=== PATIENT | female | born 1985 | race Caucasian/White ===

== ENCOUNTER 2017-01-15 15:50 | Emergency (ER) | payer BC ==
[2017-01-15] MEDS ORDERED: NORMAL SALINE 1000 ML 1,000 ML IV PRN (16:28)
--- NOTE | 2017-01-15 16:30 | ER Document Report ---
ED Medical Screen (RME) - General Chief Complaint: Dizziness Stated Complaint: DIZZINESS Time Seen by Provider: 01/15/17 16:28 Notes: Patient presents with diarrhea dizziness and left-sided abdominal pain. She also had an episode of syncope at home. She states she is currently 14 weeks . No new vaginal discharge or bleeding. She states she did have a normal ultrasound with this 4 weeks ago. She denies any vomiting. TRAVEL OUTSIDE OF THE [place] IN LAST 30 DAYS: No - Related Data Allergies/Adverse Reactions: No Known Allergies Allergy (Verified 01/15/17 16:28) Past Medical History - Social History Chew tobacco use (# tins/day): No Frequency of alcohol use: None Drug Abuse: None Renal/ Medical History: Denies: Hx Ovarian Cysts GI Medical History: Denies: Hx Crohn's Disease, Hx Diverticulitis, Hx Gastritis , Hx Irritable Bowel, Hx Ulcerative Colitis Surgical Hx: Negative - Immunizations Hx Diphtheria, Pertussis, Tetanus Vaccination: Yes Physical Exam - Vital signs Vitals: Temp Pulse Resp BP Pulse Ox 98.7 F 112 H 16 121/77 100 01/15/17 16:27 01/15/17 16:27 01/15/17 16:27 01/15/17 16:27 01/15/17 16:27 Course - Vital Signs Vital signs: Temp Pulse Resp BP Pulse Ox 98.7 F 112 H 16 121/77 100 01/15/17 16:27 01/15/17 16:27 01/15/17 16:27 01/15/17 16:27 01/15/17 16:27
[2017-01-15 17:27] LABS: APPEARANCE,URINE SLIGHTLY-CLOUDY; BILIRUBIN,URINE NEGATIVE (NEGATIVE); GLUCOSE, URINE NEGATIVE (NEGATIVE); KETONES,URINE 20 mg/dL (NEGATIVE); LEUKOCYTE ESTERASE,URINE NEGATIVE (NEGATIVE); NITRITE,URINE NEGATIVE (NEGATIVE); PROTEIN,URINE NEGATIVE (NEGATIVE); UROBILINOGEN,URINE NEGATIVE mg/dL (<2.0)
[2017-01-15 18:24] LABS: ABSOLUTE LYMPHOCYTES (AUTO) 1.5 10^3/uL (0.5-4.7); ABSOLUTE MONOCYTES (AUTO) 0.4 10^3/uL (0.1-1.4); ABSOLUTE NEUT (AUTO) 4.7 10^3/uL (1.7-8.2); BASOPHILS % (AUTO) 0.2 % (0-2); EOSINOPHILS % (AUTO) 0.3 % (0-6); HEMATOCRIT 37.4 % (36.0-47.0); HEMOGLOBIN 12.7 g/dL (12.0-15.5); HGB HCT DIFFERENCE 0.7; LYMPHOCYTES % (AUTO) 22.4 % (13-45); MEAN CORPUSCULAR HEMOGLOBIN 29.8 pg (27.0-33.4); MEAN CORPUSCULAR VOLUME 88 fl (80-97); MONOCYTES % (AUTO) 6.7 % (3-13); RED BLOOD COUNT 4.27 10^6/uL (3.72-5.28); RED CELL DISTRIBUTION WIDTH 13.8 % (11.5-14.0); SEGMENTED NEUTROPHILS % (AUTO) 70.4 % (42-78); WHITE BLOOD COUNT 6.7 10^3/uL (4.0-10.5)
[2017-01-15 18:40] LABS: ALANINE AMINOTRANSFERASE 27 U/L (9-52); ALBUMIN 4.1 g/dL (3.5-5.0); ALKALINE PHOSPHATASE 65 U/L (38-126); ANION GAP 11 (5-19); ASPARTATE AMINO TRANSFERASE 21 U/L (14-36); BILIRUBIN,DIRECT 0.4 mg/dL (0.0-0.4); BILIRUBIN,TOTAL 0.5 mg/dL (0.2-1.3); BLOOD UREA NITROGEN 8 mg/dL (7-20); CALCIUM 9.5 mg/dL (8.4-10.2); CARBON DIOXIDE 23 mmol/L (22-30); CHLORIDE 104 mmol/L (98-107); GLUCOSE 80 mg/dL (75-110); LIPASE 116.2 U/L (23-300); POTASSIUM 4.2 mmol/L (3.6-5.0); SODIUM 137.9 mmol/L (137-145); TOTAL PROTEIN 7.1 g/dL (6.3-8.2)
--- NOTE | 2017-01-15 21:35 | RADIOLOGY REPORT (SQ) ---
EXAM DESCRIPTION: U/S OB 14+ TRNABD 1GES W/O DOP COMPLETED DATE/TIME: 01/15/2017 9:09 pm REASON FOR STUDY: pain COMPARISON: None. TECHNIQUE: Limited transvaginal and transabdominal grayscale ultrasound for evaluation of specific r equested obstetrical parameters. LIMITATIONS: None. FINDINGS: Live intrauterine with ultrasound composite gestational age of 15 weeks 0 days, GAVINO 07/09/2017. CERVICAL LENGTH: 5 cm Closed. DAVID: Normal FHR: 157 beats per minute. PRESENTATION: Breech OTHER: No other significant findings. IMPRESSION: LIMITED OBSTETRICAL ULTRASOUND WITH MEASURED PARAMETERS DELINEATED ABOVE. Trimester of : Second trimester - 13 weeks 1 day to 27 weeks 6 days. TECHNICAL DOCUMENTATION: JOB ID: [id number] [employer]- All Rights Reserved
--- NOTE | 2017-01-15 21:46 | EKG REPORT ---
SEVERITY:- NORMAL ECG - SINUS RHYTHM NONSPECIFIC ST-T CHANGES : Confirmed by: Donna Tobias 15-Jan-2017 21:46:14
[2017-01-15] MEDS ORDERED: METRONIDAZOLE 500 MG TABLET PO ONE (22:30)
[2017-01-15] MEDS ORDERED: PROCHLORPERAZINE MALEATE 10 MG TABLET PO ONE (22:30)
--- NOTE | 2017-01-15 22:36 | ER Document Report ---
ED General - General Chief Complaint: Dizziness Stated Complaint: DIZZINESS Time Seen by Provider: 01/15/17 16:28 Mode of Arrival: Ambulatory Information source: Patient TRAVEL OUTSIDE OF THE [place] IN LAST 30 DAYS: No - HPI Patient complains to provider of: Abdominal cramping, syncopal episode Onset: Just prior to arrival Onset/Duration: Sudden Quality of pain: Achy, Cramping Severity: Mild Pain Level: 2 Associated symptoms: Diarrhea Exacerbated by: Denies Relieved by: Denies Similar symptoms previously: Yes Recently seen / treated by doctor: Yes Notes: Patient is a 31-year-old female who is currently 14 weeks , presenting to the emergency room complaining of diffuse abdominal cramping with diarrhea which is at time mucousy, this been going on for the past 2 days, today she had a syncopal episode while she was sitting at the table, becoming lightheaded having some neck stiffness at the time and passed out for a few seconds, she denies any chest pain or shortness of breath, no headaches, no nausea or vomiting, no fever chills, no dysuria or hematuria, she does report having some syncopal episodes during her first but not since, also reports a history of colitis with similar abdominal complaints in the past - Related Data Allergies/Adverse Reactions: No Known Allergies Allergy (Verified 01/15/17 16:28) Past Medical History - General Information source: Patient - Social History Smoking Status: Never Smoker Chew tobacco use (# tins/day): No Frequency of alcohol use: None Drug Abuse: None Family History: Reviewed & Not Pertinent Renal/ Medical History: Denies: Hx Ovarian Cysts GI Medical History: Denies: Hx Crohn's Disease, Hx Diverticulitis, Hx Gastritis , Hx Irritable Bowel, Hx Ulcerative Colitis Surgical Hx: Negative - Immunizations Hx Diphtheria, Pertussis, Tetanus Vaccination: Yes Review of Systems - Review of Systems Constitutional: No symptoms reported EENT: No symptoms reported Cardiovascular: See HPI Respiratory: No symptoms reported Gastrointestinal: See HPI Genitourinary: No symptoms reported Female Genitourinary: No symptoms reported Musculoskeletal: No symptoms reported Skin: No symptoms reported Hematologic/Lymphatic: No symptoms reported Neurological/Psychological: No symptoms reported -: Yes All other systems reviewed and negative Physical Exam - Vital signs Vitals: Temp Pulse Resp BP Pulse Ox 98.7 F 112 H 16 121/77 100 01/15/17 16:27 01/15/17 16:27 01/15/17 16:27 01/15/17 16:27 01/15/17 16:27 Interpretation: Normal - General General appearance: Appears well, Alert - HEENT Head: Normocephalic, Atraumatic Eyes: Normal Pupils: PERRL - Respiratory Respiratory status: No respiratory distress Chest status: Nontender Breath sounds: Normal Chest palpation: Normal - Cardiovascular Rhythm: Regular Heart sounds: Normal auscultation Murmur: No - Abdominal Inspection: Normal Distension: No distension Bowel sounds: Normal Tenderness: Tender - Mild diffuse tenderness Organomegaly: No organomegaly - Back Back: Normal, Nontender - Extremities General upper extremity: Normal inspection, Nontender, Normal color, Normal ROM , Normal temperature General lower extremity: Normal inspection, Nontender, Normal color, Normal ROM , Normal temperature, Normal weight bearing. No: Ghazal's sign - Neurological Neuro grossly intact: Yes Cognition: Normal Orientation: AAOx4 [place] Coma Scale Eye Opening: Spontaneous [place] Coma Scale Verbal: Oriented [place] Coma Scale Motor: Obeys Commands [place] Coma Scale Total: 15 Speech: Normal Motor strength normal: LUE, RUE, LLE, RLE Sensory: Normal - Psychological Associated symptoms: Normal affect, Normal mood - Skin Skin Temperature: Warm Skin Moisture: Dry Skin Color: Normal Course - Re-evaluation Re-evalutation: 01/15/17 22:33 Patient has a history of colitis causing her to be hospitalized atleast 2 times in the past with similar symptoms that she is experiencing today, she is currently a proximally 14 weeks with normal workup and evaluation in the emergency room, she will be started on Flagyl and provided with a prescription for antinausea medication to help with symptom relief as well, advised to follow-up with her [facility] C[facility]TER or return if symptoms worsen, patient acknowledges understanding and agreement with this plan, labs and imaging were discussed with her and spouse at bedside - Vital Signs Vital signs: Temp Pulse Resp BP Pulse Ox 98.7 F 112 H 16 121/77 100 01/15/17 16:27 01/15/17 16:27 01/15/17 16:27 01/15/17 16:27 01/15/17 16:27 - Laboratory Result Diagrams: 01/15/17 17:29 01/15/17 17:29 Laboratory results interpreted by me: 01/15/17 17:02 Urine Ketones 20 H Urine Blood SMALL H - EKG Interpretation by Me EKG shows normal: Sinus rhythm Rate: Normal Rhythm: NSR Discharge - Discharge Clinical Impression: Abdominal pain Qualifiers: Abdominal location: generalized Qualified Code(s): R10.84 - Generalized abdominal pain Qualifiers: Weeks of gestation: 15 weeks Qualified Code(s): Z3A.15 - 15 weeks gestation of Condition: Stable Disposition: HOME, SELF-CARE Instructions: Abdominal Pain ([facility]), Antinausea Medication ([facility]), Colitis, Nonspecific ([facility]) Additional Instructions: Follow up with your primary care provider in one to 2 days. Return to the emergency room immediately if symptoms worsen or any additional concerns. Prescriptions: Metronidazole [Flagyl 500 mg Tablet] 500 mg PO TID #30 tablet Prochlorperazine Maleate [Compazine 10 mg Tablet] 10 mg PO ASDIR PRN #10 tablet PRN Reason:
[2017-01-15 22:59] VITALS: BP 129/78
== END 2017-01-15 22:56 | disposition home or self-care (01) ==
LOC: ER 15:50
DX: O26.892 Other specified pregnancy related conditions, second trimester (principal); R10.84 Generalized abdominal pain; R19.7 Diarrhea, unspecified; R55 Syncope and collapse; Z3A.15 15 weeks gestation of pregnancy; Z87.19 Personal history of other diseases of the digestive system
CPT/HCPCS: 93005; 99284; 96360; 36415; 83690; 85025; 80053; 81001; 76805; 93010; S0183; J7030

== ENCOUNTER 2017-06-04 18:54 | Outpatient (CLI) | payer BC ==
[2017-06-04 19:48] LABS: APPEARANCE,URINE SLIGHTLY-CLOUDY; BILIRUBIN,URINE NEGATIVE (NEGATIVE); COLOR,URINE YELLOW; GLUCOSE, URINE NEGATIVE (NEGATIVE); KETONES,URINE 80 mg/dL (NEGATIVE); LEUKOCYTE ESTERASE,URINE MODERATE (NEGATIVE); NITRITE,URINE NEGATIVE (NEGATIVE); PROTEIN,URINE NEGATIVE (NEGATIVE); URINE SPECIFIC GRAVITY 1.013; UROBILINOGEN,URINE NEGATIVE mg/dL (<2.0)
[2017-06-04 20:00] LABS: URINE AMPHETAMINES SCREEN NEGATIVE; URINE BARBITURATES SCREEN NEGATIVE; URINE BENZODIAZEPINES SCREEN NEGATIVE; URINE COCAINE SCREEN NEGATIVE; URINE MARIJUANA (THC) SCREEN NEGATIVE; URINE METHADONE SCREEN NEGATIVE; URINE PHENCYCLIDINE SCREEN NEGATIVE
--- NOTE | 2017-06-04 20:25 | Non Stress Test Report ---
Non Stress Test Datetime Report Generated by CPN: 06/04/2017 20:24 DEMOGRAPHIC Test Number: 1 EGA NST: 34.3 INDICATION Indication for Study: Ordered by Provider MONITORING Monitor Explained: Monitor Explained; Test Explained; Patient Verbalized Understanding Time on Monitor: 06/04/2017 19:40 Time off Monitor: 06/04/2017 20:06 NST Duration: 26 NST INTERVENTIONS NST Interventions: PO Hydration; Reposition Patient Physician Notified NST: DrNaomi eHlen BABY A: [id number] BABY A Movement : Present Contraction Frequency : irritability FHR Baseline : 145 Accelerations : 15X15 Decelerations : None Variability : Moderate 6-25bpm NST Review: Meets Criteria for Reactive NST NST Review and Verified By : MATT Stanley Results: Reactive NST REPORT Report Trigger: Send Report
== END 2017-06-04 20:21 | disposition home or self-care (01) ==
LOC: LC 18:54
PROVIDERS: ATTEND Student in an Organized Health Care Education/Training Program
PROC: 4A1HXCZ Monitoring of Products of Conception, Cardiac Rate, External Approach (ICD-10-PCS; principal; 2017-06-04)
DX: Z34.83 Encounter for supervision of other normal pregnancy, third trimester (principal); Z36.89 Encounter for other specified antenatal screening; Z3A.34 34 weeks gestation of pregnancy
CPT/HCPCS: 80307; 81001; 94760

== ENCOUNTER 2017-06-04 20:31 | Emergency (ER) | payer BC ==
[2017-06-04] MEDS ORDERED: NORMAL SALINE 1000 ML 1,000 ML IV ONE (21:09)
[2017-06-04 21:41] LABS: ABSOLUTE LYMPHOCYTES (AUTO) 0.9 10^3/uL (0.5-4.7); ABSOLUTE MONOCYTES (AUTO) 0.7 10^3/uL (0.1-1.4); ABSOLUTE NEUT (AUTO) 9.1 10^3/uL (1.7-8.2); BASOPHILS % (AUTO) 0.2 % (0-2); EOSINOPHILS % (AUTO) 0.1 % (0-6); HEMATOCRIT 39.3 % (36.0-47.0); HEMOGLOBIN 13.6 g/dL (12.0-15.5); LYMPHOCYTES % (AUTO) 8.3 % (13-45); MEAN CORPUSCULAR HEMOGLOBIN 30.9 pg (27.0-33.4); MEAN CORPUSCULAR HGB CONC 34.6 g/dL (32.0-36.0); MEAN CORPUSCULAR VOLUME 89 fl (80-97); MONOCYTES % (AUTO) 6.6 % (3-13); PLATELET COUNT 199 10^3/uL (150-450); RED CELL DISTRIBUTION WIDTH 13.8 % (11.5-14.0); SEGMENTED NEUTROPHILS % (AUTO) 84.8 % (42-78); TOTAL CELLS COUNTED % (AUTO) 100 %; WHITE BLOOD COUNT 10.7 10^3/uL (4.0-10.5)
[2017-06-04 22:05] LABS: ALANINE AMINOTRANSFERASE 23 U/L (9-52); ALBUMIN 3.8 g/dL (3.5-5.0); ALKALINE PHOSPHATASE 145 U/L (38-126); ANION GAP 12 (5-19); ASPARTATE AMINO TRANSFERASE 20 U/L (14-36); BILIRUBIN,DIRECT 0.2 mg/dL (0.0-0.4); BILIRUBIN,TOTAL 0.7 mg/dL (0.2-1.3); BLOOD UREA NITROGEN 7 mg/dL (7-20); CALCIUM 9.6 mg/dL (8.4-10.2); CARBON DIOXIDE 22 mmol/L (22-30); CHLORIDE 105 mmol/L (98-107); GLUCOSE 76 mg/dL (75-110); SODIUM 138.8 mmol/L (137-145); TOTAL PROTEIN 6.5 g/dL (6.3-8.2)
--- NOTE | 2017-06-04 23:00 | ER Document Report ---
ED Cardiac - General TRAVEL OUTSIDE OF THE [place] IN LAST 30 DAYS: No - HPI Patient complains to provider of: Chest pain, Shortness of breath Associated symptoms: Other - see notes above <TEVIN KIRBY - Last Filed: 06/05/17 03:15> <THONG MCCARTNEY - Last Filed: 06/05/17 04:23> - General Chief Complaint: Chest Pain Stated Complaint: CEHST PAIN,SHORTNESS OF BREATH Time Seen by Provider: 06/04/17 21:10 Notes: 31 year old female (34 weeks) presents to the ED complaining of intermittent chest pain and shortness of breath that started today. Patient reports that she had 1 episode of vomiting while waiting in the ED and has had nausea all day. Patient denies any leg pain or swelling. (TEVIN KIRBY) - Related Data Allergies/Adverse Reactions: No Known Allergies Allergy (Verified 06/04/17 19:08) Past Medical History - General Information source: Patient - Social History Smoking Status: Never Smoker Chew tobacco use (# tins/day): No Frequency of alcohol use: None Drug Abuse: None Family History: Reviewed & Not Pertinent Patient has suicidal ideation: No Patient has homicidal ideation: No Renal/ Medical History: Denies: Hx Ovarian Cysts, Hx Peritoneal Dialysis GI Medical History: Denies: Hx Crohn's Disease, Hx Diverticulitis, Hx Gastritis , Hx Irritable Bowel, Hx Ulcerative Colitis - Immunizations Hx Diphtheria, Pertussis, Tetanus Vaccination: Yes <TEVIN KIRBY - Last Filed: 06/05/17 03:15> Review of Systems - Review of Systems Constitutional: No symptoms reported EENT: No symptoms reported Cardiovascular: See HPI, Chest pain Respiratory: See HPI, Short of breath Gastrointestinal: See HPI, Nausea, Vomiting Genitourinary: No symptoms reported Female Genitourinary: No symptoms reported Musculoskeletal: See HPI, Other - no leg pain. denies: Leg swelling Skin: No symptoms reported Hematologic/Lymphatic: No symptoms reported Neurological/Psychological: No symptoms reported -: Yes All other systems reviewed and negative <TEVIN KIRBY - Last Filed: 06/05/17 03:15> Physical Exam - Vital signs Interpretation: Hypotensive, Tachycardic - General General appearance: Alert In distress: None - HEENT Head: Normocephalic, Atraumatic Eyes: Normal Extraocular movements intact: Yes Pupils: PERRL Mucous membranes: Dry - Respiratory Respiratory status: No respiratory distress Breath sounds: Normal - Cardiovascular Rhythm: Regular, Tachycardia Heart sounds: Normal auscultation - Abdominal Inspection: Normal, Gravid female - Back Back: Normal - Extremities General upper extremity: Normal inspection, Normal ROM General lower extremity: Normal inspection, Normal ROM - Neurological Neuro grossly intact: Yes Cognition: Normal Orientation: AAOx4 [place] Coma Scale Eye Opening: Spontaneous [place] Coma Scale Verbal: Oriented [place] Coma Scale Motor: Obeys Commands [place] Coma Scale Total: 15 Speech: Normal - Psychological Associated symptoms: Normal affect, Normal mood - Skin Skin Temperature: Warm Skin Moisture: Dry Skin Color: Normal <TEVIN KIRBY - Last Filed: 06/05/17 03:15> - Vital signs Vitals: Temp Pulse Resp BP Pulse Ox 98.8 F 100 20 116/64 98 06/04/17 20:50 06/04/17 20:50 06/04/17 20:50 06/04/17 20:50 06/04/17 20:50 Course - Laboratory Result Diagrams: 06/04/17 21:32 06/04/17 21:32 - Consults Dr. Cervantes Time consulted: 03:14 <TEVIN KIRBY - Last Filed: 06/05/17 03:15> - Laboratory Result Diagrams: 06/04/17 21:32 06/04/17 21:32 - Diagnostic Test Radiology reviewed: Reports reviewed <THONG MCCARTNEY - Last Filed: 06/05/17 04:23> - Re-evaluation Re-evalutation: 06/05/17 01:30 Patient rechecked and updated with CT findings of a negative PE. Patient is experiencing the same pain and nausea as earlier and agrees to take some medicine at this time. (TEVIN KIRBY) 06/05/17 03:20 Patient is a 31-year-old female who was sent to the emergency department from labor and delivery for evaluation of chest pain. Patient states that she has had nausea, chest discomfort and dyspnea on and off. Patient had urine done in labor and delivery. Patient states that it hurts when she is breathing. Discussed doing CTA and patient was agreeable to this. No acute findings for PE , pneumothorax, or pneumonia. Patient has been given fluids. Initially she did not want anything for nausea or discomfort. Patient was then agreeable to taking medications as she was still nauseated. Given Reglan and Protonix here for suspected severe reflux. Patient had 80+ ketones on her urine. Patient does have bacteria but also squamous cells. Urine culture has been sent. Patient is still nauseated and not feeling well. She is persistently tachycardic with minimal movement and has been hypotensive here. Patient was discussed with the TERAD[facility] DEVELOPER, Dr. Cervantes who will observe the patient in labor and delivery. Patient is agreeable to this plan. 06/05/17 04:22 Patient was being sent up to labor and delivery. Patient is not going to be kept for observation but she is going upstairs for a second labor check. Dr. Cervantes will determine upstairs with the patient needs to be kept for observation. (THONG MCCARTNEY) - Vital Signs Vital signs: Temp Pulse Resp BP Pulse Ox 98.8 F 100 18 98/62 L 97 06/04/17 20:50 06/04/17 20:50 06/05/17 02:01 06/05/17 02:00 06/05/17 02:01 - Laboratory Laboratory results interpreted by me: 06/04/17 06/04/17 06/04/17 21:32 21:32 21:32 WBC 10.7 H Seg Neutrophils % 84.8 H Lymphocytes % 8.3 L Absolute Neutrophils 9.1 H D-Dimer 1.21 H Alkaline Phosphatase 145 H - Consults Dr. Cervantes Reason for consultation: 06/05/17 03:[address] Cervantes who agrees to admit the patient under her care. (TEVIN KIRBY) Discharge <TEVIN KIRBY - Last Filed: 06/05/17 03:15> <THONG MCCARTNEY - Last Filed: 06/05/17 04:23> - Discharge Clinical Impression: Dehydration, Nausea, Persistent tachycardia Condition: Stable Disposition: LABOR CHECK Scribe Attestation: 06/05/17 04:23 I personally performed the services described in the documentation, reviewed and edited the documentation which was dictated to the scribe in my presence, and it accurately records my words and actions. (THONG MCCARTNEY) Scribe Documentation - Scribe Written by Scribe:: Breana Wallace, 06/04/2017 [id number] acting as scribe for :: Palmer <TEVIN KIRBY - Last Filed: 06/05/17 03:15>
--- NOTE | 2017-06-05 00:53 | RADIOLOGY REPORT (SQ) ---
EXAM DESCRIPTION: CTA CHEST COMPLETED DATE/TIME: 06/04/2017 11:44 pm REASON FOR STUDY: Chest pain. The patient is 34 weeks . COMPARISON: None. TECHNIQUE: CT scan of the chest performed using helical scanning technique with dynamic intravenous contrast injection. Images reviewed with lung, soft tissue and bone windows. Reconstructed coronal and sagittal MPR images reviewed. Additional 3 dimensional post-processing performed to develop Maximal Intensity Projection images ([place] P). All images stored on PACS. All CT scanners at this facility use dose modulation, iterative reconstruction, and/or weight based d osing when appropriate to reduce radiation dose to as low as reasonably achievable (ALARA). [facility]: Dose Right [facility]: CareDose [facility]: Dose Right [facility]: Teradose 4D [facility]: [employer] CONTRAST TYPE AND DOSE: contrast/concentration: Isovue 370.00 mg/ml; Total Contrast Delivered: 100.0 ml; Total Saline Delivered: 40.0 ml Contrast bolus optimized for the pulmonary arteries. Not diagnostic for the aorta. RENAL FUNCTION: Creatinine 0.60 RADIATION DOSE: CT Rad equipment meets quality standard of care and radiation dose reduction techniq ues were employed. CTDIvol: 14.4 mGy. DLP: 366 mGy-cm. . LIMITATIONS: There is motion artifact. FINDINGS: LUNGS AND PLEURA: No consolidation, pleural effusion or pneumothorax. AORTA AND GREAT VESSELS: No thoracic aortic aneurysm. Contrast bolus not optimized for the aorta. HEART: No pericardial effusion. No significant coronary artery calcifications. PULMONARY ARTERIES: No emboli visualized in the main pulmonary arteries or the segmental branches. HILAR AND MEDIASTINAL STRUCTURES: No identified masses or abnormal nodes. HARDWARE: None in the chest. UPPER ABDOMEN: No significant findings. Limited exam. BONES: No acute findings. 3D MIPS: Confirm above findings. IMPRESSION: No pulmonary emboli. COMMENT: Quality ID # [id number]: Final reports with documentation of one or more dose reduction techniques (e.g., Automated exposure control, adjustment of the mA and/or kV according to patient size, use of iterative reconstruction technique) TECHNICAL DOCUMENTATION: JOB ID: [id number] [email or web address]- All Rights Reserved
[2017-06-05] MEDS ORDERED: NORMAL SALINE 1000 ML 1,000 ML IV ONE (01:13)
[2017-06-05] MEDS ORDERED: PANTOPRAZOLE SODIUM 40 MG VIAL IV ONE (01:23)
[2017-06-05] MEDS ORDERED: METOCLOPRAMIDE HCL INJ/PF 10 MG/2 ML SDV IV ONE (01:23)
[2017-06-05] MEDS ORDERED: CEFTRIAXONE 1 GM/D5W RTU 1 GM/50 ML RTUPB IV ONE (03:06)
[2017-06-05 04:33] VITALS: BP 118/73
--- NOTE | 2017-06-05 07:58 | EKG REPORT ---
SEVERITY:- BORDERLINE ECG - SINUS TACHYCARDIA PROBABLE LEFT ATRIAL ABNORMALITY BORDERLINE T ABNORMALITIES, ANT-LAT LEADS : Confirmed by: Benji Gurrola MD 05-Jun-2017 07:56:59
== END 2017-06-05 05:44 | disposition home or self-care (01) ==
LOC: ER 20:31 → EH 06-05 03:43 → UNDOADMOB 06-05 03:43 → ER 06-05 05:44 → UNDODISOB 06-05 05:44
DX: O99.283 Endocrine, nutritional and metabolic diseases complicating pregnancy, third trimester (principal); E86.0 Dehydration; O21.2 Late vomiting of pregnancy; O26.893 Other specified pregnancy related conditions, third trimester; R00.0 Tachycardia, unspecified; R06.02 Shortness of breath; R07.1 Chest pain on breathing; Z3A.34 34 weeks gestation of pregnancy
CPT/HCPCS: 93005; 99285; 96361; 96374; 96375; 36415; 87040; 85025; 80053; 84484; 85379; 71275; 93010; J2765; S0164; J7030 ×2

== ENCOUNTER 2017-06-05 04:29 | Outpatient (CLI) | payer BC ==
[2017-06-05] MEDS ORDERED: ONDANSETRON HCL INJ/PF 4 MG/2 ML SDV ONE (05:30)
[2017-06-05] MEDS ORDERED: METOCLOPRAMIDE HCL ORAL SOLN 10 MG/10 ML UDCUP PO ONE (05:53)
[2017-06-05] MEDS ORDERED: MAG HYDROX/AL HYDROX/SIMETH SUSP 30 ML UDCUP PO ONE (05:53)
[2017-06-05] MEDS ORDERED: LIDOCAINE 2% VISCOUS SOLN 20 ML UDCUP PO ONE (05:53)
[2017-06-05] MEDS ORDERED: METOCLOPRAMIDE HCL ORAL SOLN 10 MG/10 ML UDCUP ONE (06:09)
[2017-06-05] MEDS ORDERED: LIDOCAINE 2% VISCOUS SOLN 20 ML UDCUP ONE (06:09)
[2017-06-05] MEDS ORDERED: MAG HYDROX/AL HYDROX/SIMETH SUSP 30 ML UDCUP ONE (06:16)
[2017-06-05 06:22] LABS: APPEARANCE,URINE CLEAR; BILIRUBIN,URINE NEGATIVE (NEGATIVE); COLOR,URINE YELLOW; GLUCOSE, URINE NEGATIVE (NEGATIVE); KETONES,URINE 80 mg/dL (NEGATIVE); LEUKOCYTE ESTERASE,URINE LARGE (NEGATIVE); NITRITE,URINE NEGATIVE (NEGATIVE); PROTEIN,URINE NEGATIVE (NEGATIVE); URINE SPECIFIC GRAVITY 1.016; UROBILINOGEN,URINE NEGATIVE mg/dL (<2.0)
== END 2017-06-05 11:00 | disposition home or self-care (01) ==
LOC: LC 04:29
PROVIDERS: ATTEND Student in an Organized Health Care Education/Training Program
PROC: 4A1HXCZ Monitoring of Products of Conception, Cardiac Rate, External Approach (ICD-10-PCS; principal; 2017-06-05)
DX: O21.0 Mild hyperemesis gravidarum (principal); Z3A.34 34 weeks gestation of pregnancy
CPT/HCPCS: 59025; 87086; 81001; J3490; J2405

== ENCOUNTER 2017-07-01 20:44 | Outpatient (CLI) | payer BC ==
[2017-07-01 21:13] LABS: APPEARANCE,URINE CLEAR; BILIRUBIN,URINE NEGATIVE (NEGATIVE); COLOR,URINE STRAW; GLUCOSE, URINE NEGATIVE (NEGATIVE); KETONES,URINE NEGATIVE (NEGATIVE); LEUKOCYTE ESTERASE,URINE NEGATIVE (NEGATIVE); NITRITE,URINE NEGATIVE (NEGATIVE); PROTEIN,URINE NEGATIVE (NEGATIVE); URINE SPECIFIC GRAVITY 1.004; UROBILINOGEN,URINE NEGATIVE mg/dL (<2.0)
[2017-07-01 21:28] LABS: URINE AMPHETAMINES SCREEN NEGATIVE; URINE BARBITURATES SCREEN NEGATIVE; URINE BENZODIAZEPINES SCREEN NEGATIVE; URINE COCAINE SCREEN NEGATIVE; URINE MARIJUANA (THC) SCREEN NEGATIVE; URINE METHADONE SCREEN NEGATIVE; URINE PHENCYCLIDINE SCREEN NEGATIVE
--- NOTE | 2017-07-01 21:51 | Non Stress Test Report ---
Non Stress Test Datetime Report Generated by CPN: 07/01/2017 21:50 DEMOGRAPHIC Test Number: 3 EGA NST: 38.2 EGA NST: 34.4 INDICATION Indication for Study: Other Indication for Study: Ordered by Provider Indication for Study (NST) Other: LC URINE RESULTS Urine Protein, NST: Negative Urine Ketones - NST: Negative Urine Glucose - NST: Negative Urine Blood - NST: Negative MONITORING Monitor Explained: Monitor Explained; Test Explained; Patient Verbalized Understanding Monitor Explained: Monitor Explained; Test Explained; Patient Verbalized Understanding Time on Monitor: 07/01/2017 21:02 Time on Monitor: 06/05/2017 05:07 Time off Monitor: 07/01/2017 21:50 NST Duration: 48 NST INTERVENTIONS NST Interventions: None NST Interventions: PO Hydration; IV Fluids Physician Notified NST: Dr. Potter Physician Notified NST: Dr. Cervantes BABY A: [id number] BABY A Movement : Present Movement : Present Contraction Frequency : 6-11 Contraction Frequency : 3-9 FHR Baseline : 140 FHR Baseline : 130 Accelerations : 15X15 Accelerations : 15X15 Decelerations : None Decelerations : None Variability : Moderate 6-25bpm Variability : Moderate 6-25bpm NST Review: Meets Criteria for Reactive NST NST Review and Verified By : Salma Calles RN NST Results: Reactive NST REPORT Report Trigger: Send Report
--- NOTE | 2017-07-08 12:36 | Admission Physical ---
Datetime Report Generated by CPN: 07/08/2017 12:35 CURRENT ADMISSION Chief Complaint: Uterine Contractions; Other Chief Complaint Other: sent from ER for Tachycardia, Dehydration, and concern for pyelo Indication for Induction: Not Applicable Indication for Induction: , Intrauterine ; No Active Labor; Intact Membranes Admit Plan- Other: Pt brought to L_D for evaluation and labor check. ALLERGIES Medication Allergies: No Medication Allergies: No Known Allergies (07/01/2017) Medication Allergies: No Known Allergies (06/05/2017) Medication Allergies: No Known Allergies (06/04/2017) Medication Allergies: No Known Allergies (01/15/2017) Latex: Latex Allergies Food Allergies: None Environmental Allergies: None OBSTETRICAL HISTORY EDC: 07/13/2017 00:00 : 4 Para: 3 Term: 3 : 0 SAB: 0 IAB: 0 Ectopic: 0 Livin Cesareans: 0 VBACs: 0 Multiple Births: 0 Gestational Diabetes: No Rh Sensitization: No Incompetent Cervix: No HELENA: No Infertility: No ART Treatment: No Uterine Anomaly: No IUGR: No Hx Previous C/S: No Macrosomia: No Hx Loss/Stillborn: No PIH: No Hx : No Placenta Previa/Abruption: No Depression/PP Depression: No PTL/PROM: No Post Hemorrhage: No Current Procedures: Ultrasound Obstetrical History Comments: G1-39 weeks-7lbs [id number] G2-39 weeks-6lbs 1vl-[id number]-HPW-nuchal cord X2 tight- apgars 3-5-7 G3-39 weeks-6lbs [id number] G4-current, breech, plan is for primary c/s SEE RECORDS Alcohol: No Marijuana : No Cocaine: No Other Illicit Drugs: No Cigarettes: Never Smoker. 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 Heart Disease: No Hosp/Surgery: Yes Autoimmune Disorder: No Anesthetic Complications: No Kidney Disease: Yes Abnormal Pap Smear: Yes Neuro/Epilepsy: No Psychiatric Disorders: No Other Medical Diseases: No Hepatitis/Liver Disease: No Significant Family History: No Varicosities/Phlebitis: No Trauma/Violence : No Thyroid Dysfunction: No Medical History Comments: colitis 2012, hematuria 2013-referral to urology, fibrocystic mass right breast-2013 INFECTIOUS HISTORY Gonorrhea: No Genital Herpes: No Chlamydia: Yes Tuberculosis: No Syphilis: No Hepatitis: No HIV/AIDS Exposure: No Rash or Viral Illness: No HPV: No Infectious History Comments: chlamydia 2013 PHYSICAL EXAM General: Normal HEENT: Normal Neurologic: Normal Thyroid: Deferred Heart: Normal Lungs: Normal Breast: Normal Back: Normal Abdomen: Normal Genitourinary Exam: Normal Extremities: Normal DTRs: Normal Pelvic Type: Adequate Physical Exam Comments: mild musculoskeletal discomfort. lower back pain and + pain on palpation of muscles. Right musculoskeletal discomfort on palpation. VAGINAL EXAM Dilatation: 1 Effacement: 0 Station: -3 Contraction Comments: q 5-8 MEMBRANES Membranes: Intact FETUS A EGA: 34.4 Monitoring: External US Presentation: Vertex Admit Comment: 31yo at 34+3ega previously during the day for lower back pain and was evaluated and labor ruled out, UA was benign and pt denied dysuria/fever/chills. Pt did however c/o Chest pain and SOB and pt was sent to the ER for evaluation for her Chest Pain. Pt was ruled out for PE in ER with CT scan and EKG. Dr. Chakraborty was concerned re: pt having tachy and dehydration and pyelo and desired pt to be evaluated. This request came at 0300 and I accepted for pt to reurn as a labor check for evaluation and management. It then took 2 additional phone calls over two hours from myself and 2 additional phone calls from L_D environmental health technician to get patient up to L_D. I sent my [employer] to procure the patient because the ER was apparently busy. Dr. Zimmerman also put in consult request in my name which she was requested to remove since I would be evaluated the patient on L_D under my name anyway and COnsultation request under ER V# is redundant and unnecessary. Nursing billing supervisor aware that I requested the patient for evaluation for 2 hours. Finally upon patient arrival on the floor patient is not tachy and very stable, no e/o Dehydration and pt with only one episode of emesis. UA and all labs reviewed. Likely pt has ketones in urine because she has not eaten since yesterday. SHe is asking for food - diet ordered. Urine culture ordered. Afebrile and no CVAT only musculoskeletal pain - NO E/o Pyelo. Pt is NOT tachycardic - HR is 78-80 and Pulse Ox 99% on RA. No e/o dehydration as spec grav 1.016. Pt is completely stable and does not need admission for any of the c/o that the ER was concerned about. GI cocktail given and diet will re-eval symptoms - seems that issue is heartburn which can be treated as an outpatient. Report given to Dr. Potter who is taking over care and will admit if needed if anything changes. THis note is being entered soley for tracking of care and because Dr. Zimmerman entered consult that should be deleted since the patient was requested on our floor for approx 2 hours. PLANS FOR LABOR AND DELIVERY Labor and Delivery: None Pain Management: Natural Feeding Preference: Both Benefit of Breast Feed Discussed: Yes Circumcision: N/A INFORMED CONSENT Informed Consent Obtained: Vaginal Delivery; Risks, Benefits and Alternatives Discussed Signature: with User ID: [email or web address]
== END 2017-07-01 22:03 | disposition home or self-care (01) ==
LOC: LC 20:44
PROVIDERS: ATTEND Obstetrics & Gynecology Gynecology
PROC: 4A1HXCZ Monitoring of Products of Conception, Cardiac Rate, External Approach (ICD-10-PCS; principal; 2017-07-01)
DX: O47.1 False labor at or after 37 completed weeks of gestation (principal); Z3A.38 38 weeks gestation of pregnancy
CPT/HCPCS: 59025; 80307; 81005

== ENCOUNTER 2017-07-08 05:54 | Inpatient (IN) | payer BC ==
[2017-07-07 12:09] LABS: APPEARANCE,URINE CLEAR; BILIRUBIN,URINE NEGATIVE (NEGATIVE); COLOR,URINE STRAW; GLUCOSE, URINE 50 mg/dL (NEGATIVE); KETONES,URINE NEGATIVE (NEGATIVE); LEUKOCYTE ESTERASE,URINE NEGATIVE (NEGATIVE); NITRITE,URINE NEGATIVE (NEGATIVE); PROTEIN,URINE NEGATIVE (NEGATIVE); URINE SPECIFIC GRAVITY 1.005; UROBILINOGEN,URINE NEGATIVE mg/dL (<2.0)
[2017-07-07 12:22] LABS: URINE AMPHETAMINES SCREEN NEGATIVE; URINE BARBITURATES SCREEN NEGATIVE; URINE BENZODIAZEPINES SCREEN NEGATIVE; URINE COCAINE SCREEN NEGATIVE; URINE MARIJUANA (THC) SCREEN NEGATIVE; URINE METHADONE SCREEN NEGATIVE; URINE PHENCYCLIDINE SCREEN NEGATIVE
[2017-07-07 12:30] LABS: ABSOLUTE LYMPHOCYTES (AUTO) 1.6 10^3/uL (0.5-4.7); ABSOLUTE MONOCYTES (AUTO) 0.5 10^3/uL (0.1-1.4); ABSOLUTE NEUT (AUTO) 5.2 10^3/uL (1.7-8.2); BASOPHILS % (AUTO) 0.2 % (0-2); EOSINOPHILS % (AUTO) 0.3 % (0-6); HEMATOCRIT 38.3 % (36.0-47.0); HEMOGLOBIN 13.1 g/dL (12.0-15.5); LYMPHOCYTES % (AUTO) 21.4 % (13-45); MEAN CORPUSCULAR HEMOGLOBIN 30.4 pg (27.0-33.4); MEAN CORPUSCULAR HGB CONC 34.1 g/dL (32.0-36.0); MEAN CORPUSCULAR VOLUME 89 fl (80-97); MONOCYTES % (AUTO) 7.3 % (3-13); PLATELET COUNT 165 10^3/uL (150-450); SEGMENTED NEUTROPHILS % (AUTO) 70.8 % (42-78); TOTAL CELLS COUNTED % (AUTO) 100 %; WHITE BLOOD COUNT 7.3 10^3/uL (4.0-10.5)
[~2017-07-08 05:54] MED LIST: CEFAZOLIN 1 GM/D5W RTU 1 GM/50 ML RTUPB IV PRN; LIDOCAINE 0.5% INJ-PF (5 MG/ML) 50 ML SDV INJ PRN; RINGERS SOLUTION,LACTATED 1,000 ML IV PRN; RINGERS SOLUTION,LACTATED 1,500 ML IV ONE
[2017-07-08] MEDS ORDERED: OXYTOCIN 10 UNIT/ML VIAL ONE (08:49)
[2017-07-08] MEDS ORDERED: EPHEDRINE SULFATE INJ 50 MG/1 ML AMPULE ONE (08:49)
[2017-07-08] MEDS ORDERED: OXYTOCIN/NORMAL SALINE 20 UNIT/1,000 ML RTUINJ ONE (08:49)
[2017-07-08] MEDS ORDERED: MIDAZOLAM 2 MG/2 ML INJ ONE (08:50)
[2017-07-08] MEDS ORDERED: FENTANYL CITRATE INJ/PF 100 MCG/2 ML AMPUL ONE ×2 (08:50→11:43)
[2017-07-08] MEDS ORDERED: ONDANSETRON HCL INJ/PF 4 MG/2 ML SDV IV PRN (08:55)
[2017-07-08] MEDS ORDERED: MORPHINE SULFATE 10 MG/ML INJ IV PRN (08:55)
[2017-07-08] MEDS ORDERED: FENTANYL CITRATE INJ/PF 100 MCG/2 ML AMPUL IV PRN ×3 (08:55)
[2017-07-08] MEDS ORDERED: MEPERIDINE HCL/PF INJ 25 MG/1 ML DISP.SYRIN IV PRN (08:55)
[2017-07-08] MEDS ORDERED: DIPHENHYDRAMINE HCL 50 MG/ML VIAL IV PRN (08:55)
[2017-07-08] MEDS ORDERED: PROMETHAZINE HCL INJ 25 MG/1 ML VIAL IV PRN ×2 (08:55)
[2017-07-08] MEDS ORDERED: ACETAMINOPHEN 100 ML IV ONE ×2 (10:15→18:00)
--- NOTE | 2017-07-08 10:58 | OPERATIVE REPORT E ---
Operative Report NAME: SHANITA YEN : 1985 AGE: 31Y DATE OF SURGERY: 07/08/2017 ROOM: 219 PREOPERATIVE DIAGNOSES: 1. IUP at 39 weeks 0 days. 2. Breech presentation. 3. Undesired fertility. POSTOPERATIVE DIAGNOSES: 1. IUP at 39 weeks 0 days. 2. Breech presentation. 3. Undesired fertility. PROCEDURE: Low transverse hysterotomy section with [place] tubal ligation. SURGEON: ZANE LEMUS M.D. ANESTHESIA: Dr. Euceda with a spinal. FINDINGS: Female in guillermo breech presentation with Apgars of 9 and 9. COMPLICATIONS: None. ESTIMATED BLOOD LOSS: 600 mL. SPECIMENS REMOVED: Bilateral fallopian tubes. PROCEDURE IN DETAIL: Patient was taken to the operating room, prepared and draped in normal sterile fashion in a supine position with a leftward tilt. A transverse skin incision was made with a scalpel and carried through to the underlying layer of fascia with the same scalpel. The fascia was excised and extended laterally. The rectus muscle was dissected from the fascia bluntly and the rectus muscle was divided. The peritoneal cavity was entered bluntly with good visualization of the bladder and the uterus. A bladder blade was inserted. The hysterotomy was nicked with a scalpel and extended laterally with surgeon finger fracture. The infant's buttocks were delivered. The feet were grasped in utero and those were delivered as well. The rest of the then quickly followed. Two fingers were placed on the maxilla and the head was flexed to facilitate head delivery. The nose and the mouth were suctioned with a suction bulb, the cord was clamped and cut, and the was handed off to awaiting pediatricians. The cord blood was collected and the placenta was removed manually. The uterus was exteriorized and cleared of clots and debris. The hysterotomy was closed with 0 Monocryl in a running locked fashion. A second layer of the same suture was used to imbricate to ensure hemostasis. The right fallopian tube was then grasped with a Joseluis and the mesosalpinx was divided using the Bovie. A large section of fallopian tube greater than 3 cm was tied off with 2 pieces of 2-0 chromic and this intermediate section was removed with Metzenbaum. The pedicles were made hemostatic with the Bovie. This was repeated on the left fallopian tube without difficulty. The uterus was returned to the abdomen and the peritoneal cavity was cleared of clots and debris once more. The pedicles were reinspected and found to be hemostatic. The hysterotomy was reinspected and also found to be hemostatic. The rectus muscle and peritoneum were reapproximated with a mattress stitch of 2-0 chromic, the fascia was closed with 0 Vicryl, the subcutaneous layer was closed with plain catgut, and the skin was closed with 4-0 Vicryl. The patient tolerated the procedure well. Sponge, lap and needle counts were correct x2. The patient was taken to recovery in stable condition. DICTATING PHYSICIAN: ZANE LEMUS M.D. [id number] PHY#: [id number] ID: [id number] JOB#: [id number] ACCT: [id number] cc:ZANE LEMUS M.D. >
[2017-07-08] MEDS ORDERED: OXYTOCIN/NORMAL SALINE 20 UNIT/1,000 ML RTUINJ INJ PRN (12:46)
[2017-07-08] MEDS ORDERED: ACETAMINOPHEN 325 MG TABLET PO PRN (13:00)
[2017-07-08] MEDS ORDERED: MEASLES,MUMPS&RUBELLA VACC/PF 0.5 ML VIAL SUBCUT PRN (13:00)
[2017-07-08] MEDS ORDERED: DIPH/PERTUSS(ACELL)/TETANUS VAC/PF 0.5 ML SYR (>=10YO) IM PRN (13:00)
[2017-07-08] MEDS ORDERED: PROMETHAZINE HCL INJ 25 MG/1 ML VIAL IM PRN (13:00)
[2017-07-08] MEDS ORDERED: SIMETHICONE 80 MG TAB.CHEW PO PRN (13:00)
[2017-07-08] MEDS ORDERED: RINGERS SOLUTION,LACTATED 1,000 ML IV SCH (13:00)
[2017-07-08] MEDS: KETOROLAC TROMETHAMINE INJ/PF 30 MG/1 ML SDV IV SCH ×2 (13:35→21:52)
[2017-07-08] MEDS ORDERED: ONDANSETRON HCL INJ/PF 4 MG/2 ML SDV ONE (15:11)
[2017-07-08] MEDS ORDERED: METOCLOPRAMIDE HCL INJ/PF 10 MG/2 ML SDV ONE (15:11)
[2017-07-08] MEDS ORDERED: KETOROLAC TROMETHAMINE 60 MG/2 ML SDV ONE (15:11)
[2017-07-08] MEDS ORDERED: PHENYLEPHRINE HCL INJ/PF 10 MG/1 ML SDV ONE (15:11)
[2017-07-08] MEDS ORDERED: DEXAMETHASONE SOD PHOSPHATE INJ 4 MG/1 ML VIAL ONE (15:11)
[2017-07-08] MEDS ORDERED: LIDOCAINE 2% INJ-PF (20 MG/ML) 2 ML AMPUL ONE (15:11)
[2017-07-08] MEDS: OXYCODONE-ACETAMINOPHEN 5-325 MG TABLET PO PRN ×2 (16:30→20:41)
[2017-07-08] MEDS: DOCUSATE SODIUM 100 MG CAPSULE PO SCH (18:12)
[2017-07-09] MEDS: OXYCODONE-ACETAMINOPHEN 5-325 MG TABLET PO PRN ×4 (00:52→23:52)
[2017-07-09] MEDS: KETOROLAC TROMETHAMINE INJ/PF 30 MG/1 ML SDV IV SCH (05:28)
[2017-07-09 07:29] LABS: HEMATOCRIT 33.2 % (36.0-47.0); HEMOGLOBIN 11.2 g/dL (12.0-15.5); MEAN CORPUSCULAR HEMOGLOBIN 30.3 pg (27.0-33.4); MEAN CORPUSCULAR HGB CONC 33.6 g/dL (32.0-36.0); MEAN CORPUSCULAR VOLUME 90 fl (80-97); PLATELET COUNT 170 10^3/uL (150-450); RED BLOOD COUNT 3.69 10^6/uL (3.72-5.28); RED CELL DISTRIBUTION WIDTH 13.9 % (11.5-14.0); WHITE BLOOD COUNT 13.7 10^3/uL (4.0-10.5)
[2017-07-09] MEDS: PRENATAL VITAMIN W DHA CAPSULE PO SCH (08:42)
[2017-07-09] MEDS: DOCUSATE SODIUM 100 MG CAPSULE PO SCH ×2 (08:42→18:59)
--- NOTE | 2017-07-09 08:43 | PDOC PROGRESS REPORT ---
Subjective-OB Progress Note for:: 07/09/17 Subjective: tolerating regular diet, pain well controlled, denies n/v/f/c, lochia decreasing , bonding well with baby Physical Exam (OB) Vital Signs: Temp Pulse Resp BP Pulse Ox 97.9 F 61 14 97/52 L 99 07/09/17 04:34 07/09/17 04:34 07/09/17 04:34 07/09/17 04:34 07/09/17 04:34 Intake & Output 07/08/17 07/09/17 07/10/17 06:59 06:59 06:59 Intake Total 1480 Output Total 2600 Balance -1120 Weight 74.389 kg - General General Appearance: Appears well In distress: None - Dressing Removed: No - op site Incision: Dressing Closure Type: Sutures - Bilateral Tubal Ligation Dressing Removed: Yes Site: Dressing - Lochia Lochia Amount: Small 10-25 ml Lochia Color: Rubra/Red - Abdomen Description: Soft, Round Hernia Present: No Fundal Description: Firm, Midline Fundal Height: u/u - u/2 - HEENT Head: Normocephalic, Atraumatic - Respiratory Respiratory Status: No respiratory distress Chest Status: Nontender Breath sounds: Clear. negative: Rhonchi, Wheezing Chest Palpation: Normal - Cardiovascular Rhythm: Regular Heart Sounds: Normal auscultation, S1 appreciated, S2 appreciated. negative: Murmur - Abdominal Inspection: Normal Distension: No distension Tenderness: Nontender Organomegaly: No organomegaly - Genitourinary Female External exam: Normal - Extremities Upper extremity: Normal inspection, Nontender Lower extremities: Normal inspection, Nontender Calf: Normal, Nontender - Neurological Cognition: Normal Orientation: AAOx4, Alert, Oriented to person, Oriented to time Cranial nerves: Normal - Psychological Associated symptoms: Normal affect - Skin Skin Temperature: Warm Skin Moisture: Dry Skin Color: Normal Objective-Diagnostic Laboratory: 07/09/17 06:54 07/09/17 06:54 WBC 13.7 H RBC 3.69 L Hgb 11.2 L Hct 33.2 L MCV 90 MCH 30.3 MCHC 33.6 RDW 13.9 Plt Count 170 Assessment and Plan(PN) - Assessment and Plan (1) Delivery by section for breech presentation Is this a current diagnosis for this admission?: Yes Plan: Doing well postop, continue advance care, anticipate disharge tomorrow (2) Admission for sterilization Is this a current diagnosis for this admission?: Yes Plan: BTL Plan:: Continue routine pp care s/p Primary C/S for breech with BTL, Discharge to home tomorrow - Time Spent with Patient Time with patient: Less than 15 minutes Medications reviewed and adjusted accordingly: Yes - Disposition Anticipated Discharge: Home Within: within 24 hours Disposition: Discharge to home tomorrow
[2017-07-09] MEDS: IBUPROFEN 800 MG TABLET PO SCH ×3 (12:17→23:47)
[2017-07-09] MEDS: FERROUS SULFATE 325 MG TABLET PO SCH (18:59)
[2017-07-10] MEDS: IBUPROFEN 800 MG TABLET PO SCH ×2 (06:29→10:48)
[2017-07-10 08:14] LABS: HEMATOCRIT 32.9 % (36.0-47.0); HEMOGLOBIN 11.2 g/dL (12.0-15.5); MEAN CORPUSCULAR HEMOGLOBIN 30.7 pg (27.0-33.4); MEAN CORPUSCULAR HGB CONC 34.1 g/dL (32.0-36.0); MEAN CORPUSCULAR VOLUME 90 fl (80-97); PLATELET COUNT 179 10^3/uL (150-450); RED BLOOD COUNT 3.65 10^6/uL (3.72-5.28); RED CELL DISTRIBUTION WIDTH 14.2 % (11.5-14.0); WHITE BLOOD COUNT 9.3 10^3/uL (4.0-10.5)
[2017-07-10] MEDS: FERROUS SULFATE 325 MG TABLET PO SCH (10:48)
[2017-07-10] MEDS: PRENATAL VITAMIN W DHA CAPSULE PO SCH (10:48)
[2017-07-10] MEDS: DOCUSATE SODIUM 100 MG CAPSULE PO SCH (10:48)
--- NOTE | 2017-07-10 13:08 | PDOC DISCHARGE SUMMARY ---
Final Diagnosis Discharge Date: 07/10/17 - Final Diagnosis (1) Anemia due to blood loss, acute Is this a current diagnosis for this admission?: Yes (2) Delivery by section for breech presentation Is this a current diagnosis for this admission?: Yes (3) Admission for sterilization Is this a current diagnosis for this admission?: Yes Discharge Data - Discharge Medication Prescriptions: Oxycodone HCl/Acetaminophen [Percocet 5-325 mg Tablet] 1 tab PO Q4HP PRN #20 tablet PRN Reason: Ibuprofen [Motrin 800 mg Tablet] 800 mg PO Q8HP PRN #60 tablet PRN Reason: Docusate Sodium [Colace 100 mg Capsule] 100 mg PO BID #60 capsule Ferrous Sulfate [Feosol 325 mg Tablet] 325 mg PO BID #60 tablet Home Medications: Pnv 102/Iron/Folate 1/Dss/Dha [Vitafol Fe+ Docusate Combo Pck] 1 cap PO DAILY Docusate Sodium [Colace 100 mg Capsule] 100 mg PO BID #60 capsule 07/10/17 Ferrous Sulfate [Feosol 325 mg Tablet] 325 mg PO BID #60 tablet 07/10/17 Ibuprofen [Motrin 800 mg Tablet] 800 mg PO Q8HP PRN #60 tablet 07/10/17 Oxycodone HCl/Acetaminophen [Percocet 5-325 mg Tablet] 1 tab PO Q4HP PRN #20 tablet 07/10/17 Reason(s) for Admission: Ceasarean Section-Primary, Tubal Ligation Procedures: Ultrasound Intrapartum Procedure(s): : Low Cervical, Transverse, Tubal Ligation - Diagnosis Test Laboratory: Temp Pulse Resp BP Pulse Ox 98.5 F 86 18 109/68 99 07/10/17 08:04 07/10/17 08:04 07/10/17 08:04 07/10/17 08:04 07/10/17 08:04 07/07/17 07/07/17 07/09/17 10:45 11:30 06:54 RBC 4.30 3.69 L Hgb 13.1 11.2 L Hct 38.3 33.2 L Urine Opiates Screen NEGATIVE 07/10/17 07:57 RBC 3.65 L Hgb 11.2 L Hct 32.9 L Urine Opiates Screen - Discharge information/Instructions Discharge Activity: Activity As Tolerated, Balance Activity w/Rest, No Driving, No Lifting Over 10 Pounds, No Lifting/Push/Pulling, Pelvic Rest, Slowly Increase Activity, No tub bath, Walk Frequently Discharge Diet: As Tolerated, Regular Disposition: HOME, SELF-CARE Follow up with: [facility] in: 1, Weeks - incision check
[2017-07-10 13:58] VITALS: BP 104/59
== END 2017-07-10 15:15 | disposition home or self-care (01) | DRG 765 ==
LOC: 2S 05:54
PROVIDERS: ADMIT Obstetrics & Gynecology; ATTEND Obstetrics & Gynecology
PROC: 0UB70ZZ Excision of Bilateral Fallopian Tubes, Open Approach (ICD-10-PCS; 2017-07-08)
PROC: 4A1HXCZ Monitoring of Products of Conception, Cardiac Rate, External Approach (ICD-10-PCS; 2017-07-08)
PROC: 10D00Z1 Extraction of Products of Conception, Low, Open Approach (ICD-10-PCS; principal; 2017-07-08 09:15)
DX: O32.1XX0 Maternal care for breech presentation, not applicable or unspecified (principal); D62 Acute posthemorrhagic anemia; O99.02 Anemia complicating childbirth; Z30.2 Encounter for sterilization; Z83.3 Family history of diabetes mellitus; Z82.49 Family history of ischemic heart disease and other diseases of the circulatory system; Z82.5 Family history of asthma and other chronic lower respiratory diseases; Z37.0 Single live birth; Z80.6 Family history of leukemia
CPT/HCPCS: 1961; 36415; 59025; 80307; 81001; 85025; 85027; 86850; 86900; 86901; 88302; 94799; J0131; J1100; J1885; J2250; J2370; J2405; J2590; J2765; J3010; J3490; J7120

== ENCOUNTER → 2017-08-20 | Outpatient (CLI) | payer BC ==
--- NOTE | 2017-08-20 13:25 | RADIOLOGY REPORT (SQ) ---
EXAM DESCRIPTION: CHEST PA/LATERAL COMPLETED DATE/TIME: 08/20/2017 1:15 pm REASON FOR STUDY: COUGH COMPARISON: CT chest 06/04/2017 EXAM PARAMETERS: NUMBER OF VIEWS: two views TECHNIQUE: Digital Frontal and Lateral radiographic views of the chest acquired. RADIATION DOSE: NA LIMITATIONS: none FINDINGS: LUNGS AND PLEURA: No opacities, masses or pneumothorax. No pleural effusion. MEDIASTINUM AND HILAR STRUCTURES: No masses or contour abnormalities. HEART AND VASCULAR STRUCTURES: Heart normal size. No evidence for failure. BONES: No acute findings. HARDWARE: None in the chest. OTHER: No other significant finding. IMPRESSION: NO SIGNIFICANT RADIOGRAPHIC FINDING IN THE CHEST. TECHNICAL DOCUMENTATION: JOB ID: [id number] [employer]- All Rights Reserved Reading location - IP/workstation name: [email or web address]
[2017-08-20 13:29] LABS: ABSOLUTE MONOCYTES (AUTO) 0.5 10^3/uL (0.1-1.4); ABSOLUTE NEUT (AUTO) 4.4 10^3/uL (1.7-8.2); BASOPHILS % (AUTO) 0.5 % (0-2); EOSINOPHILS % (AUTO) 0.7 % (0-6); HEMATOCRIT 41.3 % (36.0-47.0); HEMOGLOBIN 13.8 g/dL (12.0-15.5); LYMPHOCYTES % (AUTO) 29.2 % (13-45); MEAN CORPUSCULAR HEMOGLOBIN 29.6 pg (27.0-33.4); MEAN CORPUSCULAR HGB CONC 33.5 g/dL (32.0-36.0); MEAN CORPUSCULAR VOLUME 88 fl (80-97); MONOCYTES % (AUTO) 6.6 % (3-13); PLATELET COUNT 246 10^3/uL (150-450); RED BLOOD COUNT 4.67 10^6/uL (3.72-5.28); RED CELL DISTRIBUTION WIDTH 12.9 % (11.5-14.0); TOTAL CELLS COUNTED % (AUTO) 100 %
== END ==
LOC: OD 12:55
PROVIDERS: ATTEND Nurse Practitioner Primary Care
DX: O90.89 Other complications of the puerperium, not elsewhere classified (principal); R05 Cough; R07.9 Chest pain, unspecified; M54.9 Dorsalgia, unspecified
CPT/HCPCS: 36415; 71046; 85025; 85379